=== PATIENT | female | born 1940 | race Caucasian/White ===

== ENCOUNTER 2019-01-14 09:14 | Day surgery (SDC) | payer MEDICARE, BC ==
[~2019-01-14 09:14] MED LIST: Lactated Ringers 1,000 ML IV SCH; Sodium Chloride 0.9% 10 ML Syringe FLUSH PRN
[2019-01-14] MEDS ORDERED: Propofol 200 MG/20 ML SDV ONE ×2 (10:18→12:07)
[2019-01-14 13:02] VITALS: BP 111/57; PULSE 66
--- NOTE | 2019-01-14 20:49 | OR ---
DATE OF SURGERY: 01/14/2019. REFERRING PROVIDER: Anu Mcdaniel PA-C. PRE-OPERATIVE DIAGNOSES: History of colon polyps. Last colonoscopy was 3 years ago and revealed 5 adenomatous polyps. POST-OPERATIVE DIAGNOSES: 1. Four small polyps removed, all using cold forceps. a. Two mm polyp at 80 cm. b. Two mm polyp at 15 cm. c. Two mm polyp x2 at 10 cm. 2. Moderately significant diverticulosis. The diverticulosis was located diffusely throughout the colon, but most prominent in the sigmoid colon. PROCEDURE: Colonoscopy with polypectomy x4 using cold forceps. SURGEON: Get Morris M.D. ANESTHESIA: Monitored anesthesia care. BOWEL PREP: Good. Wayne is a 78-year-old female, who was brought to the endoscopy suite after discussing risks and benefits of the procedure. Informed consent was obtained for conscious sedation and colonoscopy with or without biopsy and/or polypectomy. We also discussed possibility of missed lesions. Pre-procedure exam was unremarkable. IV, oxygen, and monitors were placed. The patient was placed in the left lateral decubitus position. Sedation was administered and a digital rectal exam performed and unremarkable. Colonoscope was passed into the rectum and slowly advanced all the way to the cecum. Cecum was viewed and photographed. The colonoscope was slowly withdrawn and the mucosa was closed observed in a direct circumferential manner. The ascending colon was unremarkable. The transverse colon revealed 2 mm polyp at 80 cm, removed with cold forceps. The descending colon was unremarkable. The sigmoid colon revealed 2 mm polyps at 15 cm, and at the rectosigmoid junction, at around 10 cm x2. These 3 tiny polyps were removed using cold forceps. The patient was noted to have diffuse diverticulosis, but most prominent to the sigmoid area. Retroflexion was attempted but unable to be performed given the variation in patient's anatomy to this area. Rectal mucosa was otherwise unremarkable. Scope was removed. The patient tolerated the procedure well. The patient was monitored until that baseline status. Discharge instructions were reviewed and the patient was discharged in good condition. COMPLICATIONS: None. TOTAL TIME: 24 minutes. ESTIMATED BLOOD LOSS: About 1 mL. RECOMMENDATIONS/FOLLOW-UP: We will await results of path report to determine ideal followup interval. I would like to kindly thank Anu Mcdaniel for this referral. DMB: 01/14/2019 13:18:35 MODL: 01/14/2019 20:42:15 /[id number]
== END 2019-01-14 13:42 | disposition home or self-care (01) ==
LOC: VM.SDS 09:14
PROVIDERS: ATTEND Family Medicine
DX: Z12.11 Encounter for screening for malignant neoplasm of colon (principal); D12.3 Benign neoplasm of transverse colon; K63.5 Polyp of colon; K57.30 Diverticulosis of large intestine without perforation or abscess without bleeding; K21.9 Gastro-esophageal reflux disease without esophagitis; I10 Essential (primary) hypertension; E03.9 Hypothyroidism, unspecified; E78.5 Hyperlipidemia, unspecified; F41.1 Generalized anxiety disorder; R73.01 Impaired fasting glucose; M81.0 Age-related osteoporosis without current pathological fracture; Z88.2 Allergy status to sulfonamides; Z87.891 Personal history of nicotine dependence; Z86.010 Personal history of colon polyps; Z79.82 Long term (current) use of aspirin; Z79.899 Other long term (current) drug therapy
CPT/HCPCS: 45380; J2704; J7120

== ENCOUNTER 2023-06-29 10:05 | Emergency (ER) | payer MEDICARE, BC ==
[2023-06-29 10:19] VITALS: BP 147/62; PULSE 57
== END 2023-06-29 11:36 | disposition home or self-care (01) ==
LOC: VM.ED 10:05
DX: M25.561 Pain in right knee (principal); I10 Essential (primary) hypertension; E78.00 Pure hypercholesterolemia, unspecified; K21.9 Gastro-esophageal reflux disease without esophagitis; M19.90 Unspecified osteoarthritis, unspecified site; E03.9 Hypothyroidism, unspecified; Z79.82 Long term (current) use of aspirin; Z79.899 Other long term (current) drug therapy; Z88.2 Allergy status to sulfonamides
CPT/HCPCS: 73562-RT; 99283

== ENCOUNTER 2024-06-14 06:20 | Day surgery (SDC) | payer MEDICARE, BC ==
[~2024-06-14 06:20] MED LIST changes: +Brimonidine 0.2% Ophth Soln 5 ML Bottle ONE; +Cyclopentolate 1% Opth Soln 2 ML Bottle EYERT SCH; +Dexamethasone/Neomycin/Polymyxin B Ophth Oint 3.5 GM Tube ONE; -Lactated Ringers 1,000 ML IV SCH; +Lidocaine 1% 2 ML ONE; +Moxifloxacin 0.5% Ophth Soln 3 ML Bottle EYERT SCH; +Phenylephrine 2.5% Ophth Soln 2 ML Bot EYERT SCH; +Phenyleprhine/Ketorolac 4 ML Vial ONE; +Povidone-Iodine 5% Sterile Ophth Soln 30 ML Bottle ONE; +Proparacaine 0.5% Ophth Soln 15 ML Bottle ONE; -Sodium Chloride 0.9% 10 ML Syringe FLUSH PRN; +Tropicamide 1% Ophth Soln 3 ML Bottle EYERT SCH; +acetaZOLAMIDE 500 MG Cap.ER PO SCH
[2024-06-14] MEDS: Phenylephrine 2.5% Ophth Soln 2 ML Bot EYELF SCH (06:29)
[2024-06-14] MEDS: Tropicamide 1% Ophth Soln 3 ML Bottle EYELF SCH (06:30)
[2024-06-14] MEDS: Cyclopentolate 1% Opth Soln 2 ML Bottle EYELF SCH (06:31)
[2024-06-14] MEDS: Moxifloxacin 0.5% Ophth Soln 3 ML Bottle EYELF SCH (06:52)
[2024-06-14] MEDS ORDERED: Midazolam 1 MG/ML 2 ML SDV ONE (07:32)
[2024-06-14] MEDS ORDERED: fentaNYL 100 MCG/2 ML SDV ONE (07:32)
[2024-06-14] MEDS ORDERED: ceFAZolin 500 MG Vial ONE (07:45)
[2024-06-14] MEDS: Moxifloxacin 0.5% Ophth Soln 3 ML Bottle EYELF ONE (07:48)
[2024-06-14] MEDS: Balanced Salt Solution Ophth Irrig 500 ML Bottle IOCULAR ONE (07:49)
[2024-06-14] MEDS: Lidocaine 1% PF 2 ML SDV INFILT ONE (07:50)
[2024-06-14] MEDS: Phenyleprhine/Ketorolac 4 ML Vial IO ONE (07:50)
[2024-06-14] MEDS: Chondroitin Sulfate/Hyaluronate Sodium Ophth Inj 0.5 ML Syringe IOCULAR ONE (07:51)
[2024-06-14] MEDS: Dexamethasone/Neomycin/Polymyxin B Ophth Oint 3.5 GM Tube EYELF ONE (07:52)
[2024-06-14] MEDS: Tetracaine HCl/PF 0.5% 4 ML Bottle EYELF ONE (07:52)
[2024-06-14] MEDS: Povidone-Iodine 5% Sterile Ophth Soln 30 ML Bottle EYELF ONE (07:52)
[2024-06-14] MEDS: Brimonidine 0.2% Ophth Soln 5 ML Bottle EYELF ONE (07:52)
[2024-06-14] MEDS: acetaZOLAMIDE 500 MG Cap.ER PO SCH (08:18)
[2024-06-14 08:23] VITALS: BP 104/59; PULSE 56
== END 2024-06-14 08:40 | disposition home or self-care (01) ==
LOC: VM.SDS 06:20
PROVIDERS: ATTEND Ophthalmology
DX: H26.8 Other specified cataract (principal); I10 Essential (primary) hypertension; E03.9 Hypothyroidism, unspecified; K21.9 Gastro-esophageal reflux disease without esophagitis; F41.1 Generalized anxiety disorder; E78.5 Hyperlipidemia, unspecified; Z79.890 Hormone replacement therapy; Z79.899 Other long term (current) drug therapy
CPT/HCPCS: 00142; 99100; A9270-GY; J0690; J1097; J2250; J3010; J3490

== ENCOUNTER 2024-07-19 10:59 | Emergency (ER) | payer MEDICARE, BC ==
[2024-07-19 11:08] VITALS: BP 150/59; PULSE 63
[2024-07-19] MEDS ORDERED: Sodium Chloride 0.9% 10 ML Syringe FLUSH PRN (11:12)
[2024-07-19 11:25] LABS: BASOPHILS PERCENT AUTO 0.1 % (0.2-1.2); EOSINOPHILS ABSOLUTE AUTO 0.1 x10^3/uL (0.0-0.5); EOSINOPHILS PERCENT AUTO 1.4 % (0.0-4.0); HEMATOCRIT 39.8 % (33.0-47.0); HEMOGLOBIN 12.8 g/dL (12.0-16.0); IMMATURE GRAN ABSOLUTE AUTO 0.01 x10^3/uL (0.00-0.07); LYMPHOCYTES ABSOLUTE AUTO 1.3 x10^3/uL (1.0-4.8); LYMPHOCYTES PERCENT AUTO 18.7 % (25.0-50.0); MEAN CORPUSCULAR HEMOGLOBIN 26.7 pg (26.0-32.0); MEAN CORPUSCULAR HGB CONC 32.2 g/dL (32.0-36.0); MEAN CORPUSCULAR VOLUME 82.9 fL (78.0-93.0); MONOCYTES ABSOLUTE AUTO 0.4 x10^3/uL (0.0-0.8); NEUTROPHILS ABSOLUTE AUTO 5.2 x10^3/uL (1.8-7.7); NEUTROPHILS PERCENT AUTO 73.7 % (50.0-80.0); PLATELET COUNT,PLT 178 x10^3/uL (130-400); WHITE BLOOD CELL COUNT,WBC 7.1 x10^3/uL (4.0-10.0)
[2024-07-19] MEDS: Metoclopramide 10 MG/2 ML SDV IVPUSH ONE (11:27)
[2024-07-19] MEDS: Ketorolac 15 MG/ML SDV IVPUSH ONE (11:29)
[2024-07-19 11:47] LABS: A/G RATIO 0.73; ALBUMIN 3.3 g/dL (3.4-5.0); BILIRUBIN TOTAL 0.4 mg/dL (0.2-1.0); CALCIUM 9.5 mg/dL (8.5-10.1); EST CRCL DRUG DOSING (CG) 30.62 mL/min; POTASSIUM,K 4.4 mmol/L (3.5-5.1); PROTEIN TOTAL,TP 7.8 g/dL (6.4-8.2)
[2024-07-19 11:51] LABS: ANION GAP 7.4 mmol/L (5-15)
== END 2024-07-19 12:25 | disposition home or self-care (01) ==
LOC: VM.ED 10:59
DX: J32.9 Chronic sinusitis, unspecified (principal); I10 Essential (primary) hypertension; E78.00 Pure hypercholesterolemia, unspecified; E03.9 Hypothyroidism, unspecified; Z88.2 Allergy status to sulfonamides; Z79.890 Hormone replacement therapy; Z79.899 Other long term (current) drug therapy
CPT/HCPCS: 36415; 70450; 80053; 85025; 96374; 96375; 99284; J1885; J2765